=== PATIENT | male | born 1995 | race Caucasian/White ===

== ENCOUNTER 2017-03-18 17:58 | Emergency (ER) | payer OTHER ==
[~2017-03-18] VITALS: Ht 180.3 cm; Wt 96.6 kg
[~2017-03-18 17:58] MED LIST: ATIVAN1 MG PO; EFFEXOR 5050 MG/1 T1 PO; HYDROXYZINE HCL25 M1 PO; IBUPROFEN 800800 M1 PO; INVEGA SUS39 MG/0.25 IM; KEFLEX500 M1 PO; KEFLEX500 MG PO; NOHOMEMEDICATIONS; PALIPERIDONE ER3 MG PO; PROZAC20 MG PO; RISPERDAL1 MG/1 ML IM; SEROQUEL 25 MG25 M1 PO; TRAZODONE HCL50 MG PO
[2017-03-18 18:19] LABS: ABSOLUTE EOSINOPHILS 0.1 thou/uL (0.0-0.7); ABSOLUTE LYMPHOCYTES 2.1 thou/uL (0.8-5.3); ABSOLUTE MONOCYTES 0.4 thou/uL (0.0-1.2); ABSOLUTE NEUTROPHILS 6.4 thou/uL (1.6-8.1); BASOPHILS 0.4 %; EOSINOPHILS 0.7 %; HEMATOCRIT 41.9 % (42.0-52.0); HEMOGLOBIN 14.5 gm/dL (14.0-18.0); LYMPHOCYTES 23.6 %; MCH 31.2 pg (26.0-34.0); MCHC 34.5 g/dL (28.0-37.0); MCV 90.3 fL (80.0-100.0); MONOCYTES 4.6 %; NUCLEATED RBCS 0 /100WBC; PLATELET COUNT* 268 thou/uL (150-400); POLYS 70.7 %; RBC 4.64 mil/uL (4.50-6.00); RDW-CV 13.3 % (10.5-14.5); WBC 9.1 thou/uL (4.0-11.0)
[2017-03-18 18:31] LABS: CALCIUM 9.2 mg/dL (8.5-10.1); CREATININE 0.8 mg/dL (0.6-1.3); POTASSIUM 3.8 mmol/L (3.5-5.1)
[2017-03-18 18:35] LABS: ACETAMINOPHEN < 2 ug/mL (10-30); ALBUMIN 4.4 g/dL (3.4-5.0); ALCOHOL < 10 mg/dL (<10); SALICYLATE < 2.8 mg/dL (2.8-20.0); TOTAL BILIRUBIN 0.7 mg/dL (<0.1-1.0); TOTAL PROTEIN 8.2 g/dL (6.4-8.2)
[2017-03-18] MEDS ORDERED: INVEGA SUS78 MG/0.5 IM (18:38)
[2017-03-18 19:27] LABS: URINE BLOOD NEGATIVE (Negative); URINE CLARITY CLEAR; URINE COLOR YELLOW; URINE GLUCOSE-RANDOM NEGATIVE (Negative); URINE LEUKOCYTES-REFLEX NEGATIVE (Negative); URINE NITRITE-REFLEX NEGATIVE (Negative); URINE PROTEIN NEGATIVE (Negative); URINE SPECIFIC GRAVITY >= 1.030 (1.005-1.030); URINE UROBILINOGEN 0.2 E.U./dl (0.2-1.0)
[2017-03-18 19:29] LABS: ICTOTEST (BILI CONFIRMATORY) Negative (Negative); URINE BILIRUBIN 1+ (Negative); URINE KETONES 3+ (Negative)
[2017-03-18 19:35] LABS: AMP/METHAMP POSITIVE (Negative); BARBITURATES Negative (Negative); BENZODIAZEPINES Negative (Negative); COCAINE Negative (Negative); METHADONE POSITIVE (Negative); OPIATES Negative (Negative); PCP Negative (Negative); THC Negative (Negative)
[2017-03-18 23:54] VITALS: BP 100/46
== END 2017-03-18 23:55 | disposition home or self-care (01) ==
LOC: M.ERS 17:58
PROVIDERS: Emergency Medicine Emergency Medical Services
DX: F20.0 Paranoid schizophrenia (principal); F31.9 Bipolar disorder, unspecified; F17.220 Nicotine dependence, chewing tobacco, uncomplicated; F10.99 Alcohol use, unspecified with unspecified alcohol-induced disorder; Z98.890 Other specified postprocedural states

== ENCOUNTER 2017-09-18 09:19 | Emergency (ER) | payer OTHER ==
[~2017-09-18] VITALS: Ht 180.3 cm; Wt 86.2 kg
[~2017-09-18 09:19] MED LIST changes: +INVEGA SUS78 MG/0.5 IM
[2017-09-18] MEDS ORDERED: HYDROXYZINE HCL25 M1 PO (09:31)
[2017-09-18 10:23] VITALS: BP 129/98
== END 2017-09-18 10:24 | disposition home or self-care (01) ==
LOC: M.ERS 09:19
DX: S01.511A Laceration without foreign body of lip, initial encounter (principal); F20.9 Schizophrenia, unspecified; F17.220 Nicotine dependence, chewing tobacco, uncomplicated; Y04.0XXA Assault by unarmed brawl or fight, initial encounter; Y93.89 Activity, other specified; Y92.89 Other specified places as the place of occurrence of the external cause; Y99.8 Other external cause status

== ENCOUNTER 2018-06-23 09:44 | Emergency (ER) | payer OTHER, MEDICAID ==
[~2018-06-23] VITALS: Ht 177.8 cm; Wt 123.8 kg
[2018-06-23] MEDS ORDERED: BUSPIRONE HCL10 MG PO (09:57)
[2018-06-23] MEDS ORDERED: CELEXA20 MG PO (09:57)
[2018-06-23] MEDS ORDERED: TRAZODONE 150150 M1 PO (09:57)
[2018-06-23] MEDS ORDERED: CIPROFLOXIN HC2.5 M1 OPHTHALMIC (10:33)
[2018-06-23] MEDS ORDERED: ERYTHROMYCIN E3.5 G2 TOP (10:33)
[2018-06-23 10:54] VITALS: BP 125/75
== END 2018-06-23 10:55 | disposition home or self-care (01) ==
LOC: M.ERS 09:44
DX: S05.01XA Injury of conjunctiva and corneal abrasion without foreign body, right eye, initial encounter (principal); F20.9 Schizophrenia, unspecified; F17.220 Nicotine dependence, chewing tobacco, uncomplicated; X58.XXXA Exposure to other specified factors, initial encounter; Y93.89 Activity, other specified; Y92.89 Other specified places as the place of occurrence of the external cause; Y99.8 Other external cause status